=== PATIENT | male | born 1955 | race Caucasian/White ===

== ENCOUNTER 2019-03-29 01:45 | Emergency (ER) | payer OTHER ==
[~2019-03-29] VITALS: Ht 175.3 cm; Wt 80.3 kg
== END 2019-03-29 03:45 | disposition home or self-care (01) ==
LOC: ER 01:45
DX: M54.2 Cervicalgia (principal); Z87.891 Personal history of nicotine dependence; W11.XXXA Fall on and from ladder, initial encounter
CPT/HCPCS: 72125; 99284-25